=== PATIENT | female | born 1940 | race Caucasian/White ===

== ENCOUNTER 2019-05-28 11:37 | Inpatient (IN) | payer MEDICARE ==
[~2019-05-28] VITALS: Ht 154.9 cm; Wt 61.4 kg
[2019-05-28 12:30] LABS: BASOPHILS % (AUTO) 0.2 % (0-1); EOSINOPHILS % (AUTO) 0.1 % (0-6); HEMATOCRIT 35.7 % (35.0-45.0); HEMOGLOBIN 12.1 g/dl (12.0-16.0); LYMPHOCYTES # (AUTO) 1.6 X10'3 (1.1-4.8); LYMPHOCYTES % (AUTO) 15.2 % (21-51); MEAN CORPUSCULAR HGB CONC 33.8 g/dL (33.0-36.5); MEAN CORPUSCULAR VOLUME 91.6 FL (78-98); MEAN PLATELET VOLUME 7.2 FL (7.4-10.4); MONOCYTES # (AUTO) 0.7 X10'3 (0-0.9); MONOCYTES % (AUTO) 6.9 % (2-12); NEUTROPHILS # (AUTO) 8.2 X10'3 (1.8-7.7); NEUTROPHILS % (AUTO) 77.6 % (42-75); PLATELET COUNT 281 X10'3 (140-440); RED CELL DISTRIBUTION WIDTH 12.7 % (11.5-14.5); WHITE BLOOD COUNT 10.6 X10'3 (4.5-11.0)
[2019-05-28 12:46] LABS: ALANINE AMINOTRANSFERASE 28 U/L (12-78); ALBUMIN 3.4 G/DL (3.4-5.0); ALBUMIN/GLOBULIN RATIO 1.2 (1.1-1.5); ALKALINE PHOSPHATASE 55 IU/L (46-116); ANION GAP 11 (8-16); ASPARTATE AMINO TRANSFERASE 19 U/L (10-37); BILIRUBIN,TOTAL 0.5 MG/DL (0.1-1.0); BLOOD UREA NITROGEN 29 MG/DL (7-18); BUN/CREATININE RATIO 27.1 (6.6-38.0); CALCIUM 8.2 MG/DL (8.5-10.1); CHLORIDE 106 MMOL/L (99-107); CREATININE 1.07 MG/DL (0.40-0.90); GLUCOSE 107 MG/DL (70-104); POTASSIUM 3.5 MMOL/L (3.5-5.1); SODIUM 143 MMOL/L (135-145); TOTAL CARBON DIOXIDE 25.9 MMOL/L (24-32); TOTAL PROTEIN 6.2 G/DL (6.4-8.2); eGFR 49 ML/MIN
[2019-05-28] MEDS ORDERED: ACET-812 PO (14:32)
[2019-05-28] MEDS ORDERED: CHOL400T14 PO (14:32)
[2019-05-28] MEDS ORDERED: ERGO500054 PO (14:32)
[2019-05-28] MEDS ORDERED: DENO60DI SQ (14:32)
[2019-05-28] MEDS ORDERED: LISI10TA4 PO (14:32)
[2019-05-28] MEDS ORDERED: CALC0.2535 PO (14:32)
[2019-05-28] MEDS ORDERED: CALC-854 PO (14:32)
[2019-05-28] MEDS ORDERED: ESOM20CA PO (14:32)
[2019-05-28] MEDS ORDERED: HYDR12.55 PO (14:32)
[2019-05-28] MEDS ORDERED: ASPI-778 PO (14:32)
[2019-05-28] MEDS ORDERED: mag hydrox/Alum hydrox/simeth 30ml oral suspension PO PRN (14:35)
[2019-05-28] MEDS ORDERED: diphenhydrAMINE 50 mg/ml inj IV PRN (14:35)
[2019-05-28] MEDS ORDERED: bisacodyl 10mg suppository rectal RC PRN (14:35)
[2019-05-28] MEDS ORDERED: HYDROcodone/acetaminophen 5mg/325mg tablet PO PRN (14:35)
[2019-05-28] MEDS ORDERED: potassium Cl 20 mEq SR tablet PO PRN ×2 (14:35)
[2019-05-28] MEDS ORDERED: nitroGLYCERIN 0.4mg SUBLingual tab SL PRN (14:35)
[2019-05-28] MEDS ORDERED: potassium CL 10mEq/100ml bag 100 ML IV PRN ×2 (14:35)
[2019-05-28] MEDS ORDERED: magnesium hydroxide 30ml (MOM) UD suspension PO PRN (14:35)
[2019-05-28] MEDS ORDERED: metoprolol tartrate 1mg/ml inj IV PRN (14:35)
[2019-05-28] MEDS ORDERED: aminophylline 250mg/10ml inj. IV PRN (14:35)
[2019-05-28] MEDS ORDERED: acetaminophen 650mg rectal suppository RC PRN (14:35)
[2019-05-28] MEDS ORDERED: diphenhydrAMINE 25mg capsule PO PRN (14:35)
[2019-05-28] MEDS ORDERED: acetaminophen 325mg tablet PO PRN (14:35)
[2019-05-28] MEDS ORDERED: regadenoson 0.4mg/5ml syringe IV PRN (14:35)
[2019-05-28] MEDS ORDERED: ondansetron/PF 4mg/2ml inj IV PRN (14:35)
[2019-05-28] MEDS ORDERED: aspirin 325mg tablet PO ONE (14:35)
[2019-05-28 14:49] LABS: PARTIAL THROMBOPLASTIN TIME 56 SECONDS (22-32)
[2019-05-28 15:25] LABS: HEMOGLOBIN A1C 5.9 % (4.5-6.2)
[2019-05-28] MEDS ORDERED: heparin 10,000 units/1 ML INJ IV ONE (15:25)
[2019-05-28 15:26] LABS: MAGNESIUM 1.7 MG/DL (1.5-2.4); PHOSPHORUS 3.7 MG/DL (2.3-4.5)
[2019-05-28 15:45] VITALS: BP 157/76
[2019-05-28] MEDS: normal saline 1000ml 1,000 ML IV SCH (16:25)
[2019-05-28] MEDS: heparin 25,000 UNIT/250ml bag 250 ML IV SCH ×2 (16:32→23:40)
[2019-05-28] MEDS: acetaminophen 325mg tablet PO PRN (17:12)
[2019-05-28 18:00] VITALS: BP 172/80
--- NOTE | 2019-05-28 18:00 | NUR ---
Patient in room PCU 3015. I have received report from Floyd ORTIZ and had the opportunity to ask questions and assume patient care.
--- NOTE | 2019-05-28 18:00 | NUR ---
Patient in room PCU 3015. I have received report from Patricia ORTIZ and had the opportunity to ask questions and assume patient care.
--- NOTE | 2019-05-28 18:18 | NUR ---
Patient is admitted to room PCU 3015 @5442. I have received report from Sonya ORTIZ and had the opportunity to ask questions and assume patient care. VSS 157/76 (95) 80 17 99% on RA pain 0/10, Tele monitor 40 is placed, pt is tucked into bed all needs met at this time, will continue to monitor
--- NOTE | 2019-05-28 18:54 | NUR ---
Problems reprioritized. Patient report given, questions answered & plan of care reviewed with Aylin ORTIZ.
[2019-05-28] MEDS ORDERED: LORazepam 1 MG tablet PO ONE (19:40)
[2019-05-28] MEDS ORDERED: temazepam 15mg capsule PO PRN (21:00)
[2019-05-28 22:00] VITALS: BP 96/56
[2019-05-28] MEDS: heparin 10,000 units/1 ML INJ IV PRN (23:38)
[2019-05-29] VITALS (15 sets, daily range): BP systolic 117–150; BP diastolic 54–74
[2019-05-29] MEDS: normal saline 1000ml 1,000 ML IV SCH ×3 (00:34→20:34)
--- NOTE | 2019-05-29 05:36 | NUR ---
Patient slept well all night. Able to ambulate to the bathroom with stand-by assistance and a front wheel walker. Patient was given Ativan for MRI but was not able to go to MRI, bumped off the list due to a stroke alert in the hospital, and is on the list for MRI today in AM at 0800. Ativan is available for the patient's claustrophobia. Next cardiac PTT is at 0540. Possible Sabrina scan today. NPO this morning per MD Christian. Will continue to monitor.
[2019-05-29 05:41] LABS: BASOPHILS % (AUTO) 0.6 % (0-1); EOSINOPHILS # (AUTO) 0.1 X10'3 (0-0.9); EOSINOPHILS % (AUTO) 1.9 % (0-6); HEMATOCRIT 32.9 % (35.0-45.0); HEMOGLOBIN 11.2 g/dl (12.0-16.0); LYMPHOCYTES # (AUTO) 1.6 X10'3 (1.1-4.8); LYMPHOCYTES % (AUTO) 29.6 % (21-51); MEAN CORPUSCULAR HEMOGLOBIN 30.8 PG (27.0-31.0); MEAN CORPUSCULAR HGB CONC 34.1 g/dL (33.0-36.5); MEAN CORPUSCULAR VOLUME 90.2 FL (78-98); MEAN PLATELET VOLUME 7.8 FL (7.4-10.4); MONOCYTES # (AUTO) 0.6 X10'3 (0-0.9); MONOCYTES % (AUTO) 10.4 % (2-12); NEUTROPHILS # (AUTO) 3.1 X10'3 (1.8-7.7); NEUTROPHILS % (AUTO) 57.5 % (42-75); PLATELET COUNT 242 X10'3 (140-440); RED BLOOD COUNT 3.64 X10'6 (4.20-5.60); RED CELL DISTRIBUTION WIDTH 12.5 % (11.5-14.5); WHITE BLOOD COUNT 5.4 X10'3 (4.5-11.0)
[2019-05-29 05:49] LABS: ALANINE AMINOTRANSFERASE 22 U/L (12-78); ALBUMIN 2.9 G/DL (3.4-5.0); ALBUMIN/GLOBULIN RATIO 1.1 (1.1-1.5); ALKALINE PHOSPHATASE 46 IU/L (46-116); ANION GAP 9 (8-16); ASPARTATE AMINO TRANSFERASE 15 U/L (10-37); BILIRUBIN,TOTAL 0.5 MG/DL (0.1-1.0); BLOOD UREA NITROGEN 26 MG/DL (7-18); BUN/CREATININE RATIO 27.7 (6.6-38.0); CALCIUM 7.6 MG/DL (8.5-10.1); CHLORIDE 111 MMOL/L (99-107); CHOL/HDL RATIO 2.8 (0.00-4.99); CHOLESTEROL 177 MG/DL (0-200); CREATININE 0.94 MG/DL (0.40-0.90); GLUCOSE 103 MG/DL (70-104); HDL CHOLESTEROL 64 MG/DL (35-60); LDL CHOLESTEROL 100 MG/DL (50-100); PHOSPHORUS 2.9 MG/DL (2.3-4.5); POTASSIUM 3.6 MMOL/L (3.5-5.1); SODIUM 144 MMOL/L (135-145); TOTAL CARBON DIOXIDE 23.9 MMOL/L (24-32); TOTAL PROTEIN 5.5 G/DL (6.4-8.2); TRIGLYCERIDES 98 MG/DL (20-135); eGFR 57 ML/MIN
--- NOTE | 2019-05-29 05:59 | NUR ---
Medication Reconciliation Needs to be done. Unable on my shift, patient stated she already done it with ER and was too drowsy from Ativan to answer further more questions.
--- NOTE | 2019-05-29 06:32 | NUR ---
Problems reprioritized. Patient report given, questions answered & plan of care reviewed with Patricia ORTIZ.
[2019-05-29] MEDS ORDERED: LORazepam 1 MG tablet PO ONE (07:00)
--- NOTE | 2019-05-29 07:11 | NUR ---
PAGER ID: [phone] MESSAGE: [phone] Julia Tadeo: RYLEE Cardiac PTT this morning critical at 96, will hold heparin GTTS and will restart per protocol. Thanks Floyd
[2019-05-29] MEDS ORDERED: enoxaparin 40mg/0.4ml syringe SUBCUT SCH (08:00)
[2019-05-29] MEDS: K and/or MAG REPLACEMENT MC SCH (08:00)
[2019-05-29] MEDS: lisinopril 10 MG tablet PO SCH (08:00)
[2019-05-29] MEDS: aspirin 325mg tablet PO SCH (08:25)
[2019-05-29] MEDS: heparin 25,000 UNIT/250ml bag 250 ML IV SCH ×2 (12:13→15:21)
--- NOTE | 2019-05-29 12:52 | NUR ---
PAGER ID: [phone] MESSAGE: [id number] Julia Tadeo: Stress test results in, Small reversible anteroapical perfusion defect, Ejection fraction equals 74%. Thanks Floyd
--- NOTE | 2019-05-29 14:08 | NUR ---
PAGER ID: [phone] MESSAGE: [id number] Julia Tadeo: Stress test results in, Small reversible anteroapical perfusion defect, Ejection fraction equals 74%, Pt is getting impatient and wants to know the plan and if she can eat. Thanks Floyd
[2019-05-29] MEDS: heparin 10,000 units/1 ML INJ IV PRN (15:20)
--- NOTE | 2019-05-29 16:30 | NUR ---
Received orders from Dr. Christian to d/c heparin gtts and start lovenox 1mg/kg q12h
--- NOTE | 2019-05-29 18:00 | NUR ---
Patient in room PCU 3015. I have received report from Floyd ORTIZ and had the opportunity to ask questions and assume patient care.
--- NOTE | 2019-05-29 18:44 | NUR ---
Problems reprioritized. Patient report given, questions answered & plan of care reviewed with Aylin ORTIZ.
[2019-05-29] MEDS: enoxaparin 60mg/0.6ml syringe SUBCUT SCH (19:26)
[2019-05-29] MEDS ORDERED: simethicone 125mg capsule PO ONE (22:45)
[2019-05-29] MEDS ORDERED: pantoprazole 40mg Tablet.DR PO ONE (23:00)
[2019-05-30 02:00] VITALS: BP 126/91
--- NOTE | 2019-05-30 04:28 | NUR ---
END NOC NOTE Patient slept well this shift. Able to ambulate to the bathroom with front wheel walker and assistance. At 0400 patient's HR dropped to the 50s, I assessed the patient and She was not symptomatic and stated that she has a history of bradycardia due to her cardiac history and sleep apnea. Will continue to monitor.
[2019-05-30 06:00] VITALS: BP 155/70
--- NOTE | 2019-05-30 06:25 | NUR ---
Patient in room PCU 3015. I have received report from DIANA Viera and had the opportunity to ask questions and assume patient care.
--- NOTE | 2019-05-30 06:41 | NUR ---
Problems reprioritized. Patient report given, questions answered & plan of care reviewed with Elisabeth ORTIZ.
[2019-05-30] MEDS ORDERED: pantoprazole 40mg Tablet.DR PO SCH (07:30)
[2019-05-30] MEDS: K and/or MAG REPLACEMENT MC SCH (08:00)
[2019-05-30] MEDS: lisinopril 10 MG tablet PO SCH (08:49)
[2019-05-30] MEDS: aspirin 325mg tablet PO SCH (08:50)
[2019-05-30] MEDS: enoxaparin 60mg/0.6ml syringe SUBCUT SCH ×2 (08:50→19:21)
[2019-05-30 11:00] VITALS: BP 124/56
[2019-05-30] MEDS: acetaminophen 325mg tablet PO PRN ×2 (11:30→21:33)
[2019-05-30] MEDS: normal saline 1000ml 1,000 ML IV SCH ×3 (11:34→22:33)
[2019-05-30 15:00] VITALS: BP 127/58
[2019-05-30 18:00] VITALS: BP 149/56
--- NOTE | 2019-05-30 18:27 | NUR ---
Problems reprioritized. Patient report given, questions answered & plan of care reviewed with DIANA Viera .
[2019-05-30] MEDS ORDERED: docusate sod 100mg capsule PO ONE (20:00)
[2019-05-30 23:00] VITALS: BP 144/68
[2019-05-31] VITALS (12 sets, daily range): BP systolic 132–174; BP diastolic 56–79
--- NOTE | 2019-05-31 04:07 | NUR ---
END NOC NOTE Patient slept well tonight. A bit anxious about the angio procedure in AM, educational material was given and patient stated "I feel so much better about this the more i read it." Will continue to monitor.
--- NOTE | 2019-05-31 05:41 | NUR ---
Patient in room PCU 3015. I have received report from Aylin ORTIZ and had the opportunity to ask questions and assume patient care.
--- NOTE | 2019-05-31 06:53 | NUR ---
Patient in room PCU 3019B. I have received report from Aylin ORTIZ and had the opportunity to ask questions and assume patient care.
--- NOTE | 2019-05-31 06:59 | NUR ---
Problems reprioritized. Patient report given, questions answered & plan of care reviewed with Yina ORTIZ.
[2019-05-31 07:15] LABS: BASOPHILS % (AUTO) 0.4 % (0-1); EOSINOPHILS # (AUTO) 0.1 X10'3 (0-0.9); HEMATOCRIT 35.7 % (35.0-45.0); HEMOGLOBIN 12.1 g/dl (12.0-16.0); LYMPHOCYTES % (AUTO) 16.5 % (21-51); MEAN CORPUSCULAR HEMOGLOBIN 30.6 PG (27.0-31.0); MEAN CORPUSCULAR HGB CONC 33.7 g/dL (33.0-36.5); MEAN CORPUSCULAR VOLUME 90.7 FL (78-98); MEAN PLATELET VOLUME 7.5 FL (7.4-10.4); MONOCYTES # (AUTO) 0.6 X10'3 (0-0.9); MONOCYTES % (AUTO) 9.1 % (2-12); NEUTROPHILS # (AUTO) 4.6 X10'3 (1.8-7.7); PLATELET COUNT 236 X10'3 (140-440); RED BLOOD COUNT 3.94 X10'6 (4.20-5.60); RED CELL DISTRIBUTION WIDTH 12.6 % (11.5-14.5); WHITE BLOOD COUNT 6.4 X10'3 (4.5-11.0)
[2019-05-31] MEDS: aspirin 325mg tablet PO SCH (07:54)
[2019-05-31] MEDS: K and/or MAG REPLACEMENT MC SCH (08:00)
[2019-05-31] MEDS: lisinopril 10 MG tablet PO SCH (08:02)
[2019-05-31 08:54] LABS: ALANINE AMINOTRANSFERASE 34 U/L (12-78); ALBUMIN/GLOBULIN RATIO 0.9 (1.1-1.5); ALKALINE PHOSPHATASE 53 IU/L (46-116); ANION GAP 11 (8-16); ASPARTATE AMINO TRANSFERASE 29 U/L (10-37); BILIRUBIN,TOTAL 0.4 MG/DL (0.1-1.0); BLOOD UREA NITROGEN 17 MG/DL (7-18); BUN/CREATININE RATIO 19.1 (6.6-38.0); CALCIUM 7.7 MG/DL (8.5-10.1); CHLORIDE 114 MMOL/L (99-107); CREATININE 0.89 MG/DL (0.40-0.90); GLUCOSE 94 MG/DL (70-104); PHOSPHORUS 1.7 MG/DL (2.3-4.5); POTASSIUM 3.4 MMOL/L (3.5-5.1); SODIUM 147 MMOL/L (135-145); TOTAL CARBON DIOXIDE 22.4 MMOL/L (24-32); TOTAL PROTEIN 6.3 G/DL (6.4-8.2); eGFR 61 ML/MIN
[2019-05-31] MEDS: potassium CL 20mEq in D5-1/2NS 1,000 ML IV SCH ×2 (09:42→21:45)
[2019-05-31] MEDS ORDERED: LIDOcaine 1% (10mg/ml)w/preservative injection 20ml MDV ONE (09:54)
[2019-05-31] MEDS ORDERED: iohexol 350MG/ML 100ml bottle IV ONE (09:55)
[2019-05-31] MEDS ORDERED: iohexol 350 MG/ML 50ML vial IV ONE (09:55)
[2019-05-31] MEDS ORDERED: potassium CL 10mEq/100ml bag 100 ML IV PRN (10:00)
[2019-05-31] MEDS ORDERED: magnesium Cl slow-release 64mg tablet PO PRN (10:00)
[2019-05-31] MEDS ORDERED: potassium Cl 20 mEq SR tablet PO PRN ×2 (10:00)
[2019-05-31] MEDS ORDERED: magnesium 4gm in 100ml NS 100 ML IV PRN (10:00)
--- NOTE | 2019-05-31 10:26 | NUR ---
Patient taken to [facility]
[2019-05-31] MEDS ORDERED: midazolam 2 mg/2 ml injection ONE (10:31)
[2019-05-31] MEDS ORDERED: fentaNYL/PF 50MCG/1 ML 2ML syringe ONE (10:31)
--- NOTE | 2019-05-31 11:10 | NUR ---
Received report from Rope [employer]er. Patient has no CAD, sheath was removed, and patient angio-sealed on right groin. Received in report that patient got 2 of Versed and 100 of Fentanyl.
--- NOTE | 2019-05-31 11:15 | NUR ---
patient returned from laborer tin can. NS connected at 100/hr per MD order, right groin site assessed, and pedal pulses verified. VSS stable and initiated post op vital protocol. Orders faxed to pharmacy. Will continue to monitor closely Addendum: 05/31/19 at 1150 by Yina Restrepo RN Pt educated that she needs to lay flat and still for 6 hours
[2019-05-31] MEDS ORDERED: OXAZEpam 15mg capsule PO PRN (11:45)
[2019-05-31] MEDS ORDERED: HYDROcodone/acetaminophen 10/325mg tab PO PRN (11:45)
[2019-05-31] MEDS ORDERED: proCHLORperazine 10 MG/2 ml inj IV PRN (11:45)
[2019-05-31] MEDS ORDERED: POTASSIUM BICARB 20meq eff tab 20 MEQ TABLET.EFF PO PRN ×2 (12:27→12:28)
--- NOTE | 2019-05-31 14:23 | NUR ---
Paged Dr Christian PAGER ID: [phone] MESSAGE: Yina us [phone]. RE Kendra Tadeo One of pts IVs pulled out upon return from petroleum refinery laborer. 4 attempts for IV, no success. Only have 1 IV access. Will continue to run NS for 10 hrs per cath order, and will restart ordered 20 mEq K in D5W 1/2 NS after
--- NOTE | 2019-05-31 15:15 | NUR ---
Pedal pulses continuing to be found via palpation and doppler. No hematoma on right groin site. No pain present in retroperitoneal. Will continue to monitor closely
--- NOTE | 2019-05-31 15:23 | NUR ---
22 IV placed in right forearm. Patient tolerated well. Both ordered fluids currently running via separate IVs
--- NOTE | 2019-05-31 18:00 | NUR ---
Patient in room PCU 3015. I have received report from Yina ORTIZ and had the opportunity to ask questions and assume patient care.
--- NOTE | 2019-05-31 18:12 | NUR ---
Problems reprioritized. Patient report given, questions answered & plan of care reviewed with Aylin ORTIZ.
[2019-05-31] MEDS ORDERED: docusate sod 100mg capsule PO ONE (20:05)
[2019-06-01 02:00] VITALS: BP 138/63
--- NOTE | 2019-06-01 04:11 | NUR ---
Fever Patient had a temperature of 101 deg. F at 0000, tylenol was given and continued to monitor. 0100, temperature 100 deg F; 0200, temperatue 99 deg F; 0400, temperature 98.8 deg F.
--- NOTE | 2019-06-01 05:28 | NUR ---
END NOC NOTE: Patient is nervous about going home today with having a fever tonight but knows the fever has broke. Will continue to monitor.
[2019-06-01 06:00] VITALS: BP 131/67
[2019-06-01 06:11] LABS: BASOPHILS % (AUTO) 0.3 % (0-1); EOSINOPHILS % (AUTO) 0.5 % (0-6); HEMATOCRIT 29.8 % (35.0-45.0); HEMOGLOBIN 10.3 g/dl (12.0-16.0); LYMPHOCYTES # (AUTO) 1.2 X10'3 (1.1-4.8); LYMPHOCYTES % (AUTO) 15.3 % (21-51); MEAN CORPUSCULAR HEMOGLOBIN 31.4 PG (27.0-31.0); MEAN CORPUSCULAR HGB CONC 34.4 g/dL (33.0-36.5); MEAN CORPUSCULAR VOLUME 91.2 FL (78-98); MEAN PLATELET VOLUME 7.9 FL (7.4-10.4); MONOCYTES # (AUTO) 0.8 X10'3 (0-0.9); MONOCYTES % (AUTO) 10.5 % (2-12); NEUTROPHILS # (AUTO) 5.8 X10'3 (1.8-7.7); NEUTROPHILS % (AUTO) 73.4 % (42-75); PLATELET COUNT 217 X10'3 (140-440); RED BLOOD COUNT 3.27 X10'6 (4.20-5.60); RED CELL DISTRIBUTION WIDTH 12.5 % (11.5-14.5); WHITE BLOOD COUNT 7.9 X10'3 (4.5-11.0)
--- NOTE | 2019-06-01 06:25 | NUR ---
Patient in room PCU 3019C. I have received report from Aylin ORTIZ and had the opportunity to ask questions and assume patient care.
[2019-06-01 06:49] LABS: ALANINE AMINOTRANSFERASE 39 U/L (12-78); ALBUMIN 2.5 G/DL (3.4-5.0); ALBUMIN/GLOBULIN RATIO 0.9 (1.1-1.5); ALKALINE PHOSPHATASE 52 IU/L (46-116); ANION GAP 12 (8-16); ASPARTATE AMINO TRANSFERASE 27 U/L (10-37); BILIRUBIN,TOTAL 0.5 MG/DL (0.1-1.0); BLOOD UREA NITROGEN 12 MG/DL (7-18); BUN/CREATININE RATIO 12.9 (6.6-38.0); CALCIUM 6.7 MG/DL (8.5-10.1); CHLORIDE 110 MMOL/L (99-107); CREATININE 0.93 MG/DL (0.40-0.90); GLUCOSE 112 MG/DL (70-104); PHOSPHORUS 1.6 MG/DL (2.3-4.5); POTASSIUM 3.4 MMOL/L (3.5-5.1); SODIUM 143 MMOL/L (135-145); TOTAL CARBON DIOXIDE 21.1 MMOL/L (24-32); TOTAL PROTEIN 5.4 G/DL (6.4-8.2); eGFR 58 ML/MIN
--- NOTE | 2019-06-01 06:50 | NUR ---
Problems reprioritized. Patient report given, questions answered & plan of care reviewed with Yina ORTIZ.
[2019-06-01 07:00] VITALS: BP 131/67
--- NOTE | 2019-06-01 07:28 | NUR ---
Paged Dr Christian PAGER ID: [phone] MESSAGE: Yina su [phone]. RE Kendra Tadeo Pt concerned about possible UTI. [place] vaginal burning during NOC, not currently feeling now. Temp ranges from 98.6-100.2 WBC 7.9 today, up from 6.4 yesterday. Pt would like to speak to you about it. Thank you!
[2019-06-01] MEDS: K and/or MAG REPLACEMENT MC SCH (07:36)
[2019-06-01] MEDS: aspirin 325mg tablet PO SCH (07:41)
[2019-06-01] MEDS: lisinopril 10 MG tablet PO SCH (07:41)
[2019-06-01 08:57] LABS: CLARITY,URINE CLEAR (Clear); COLOR,URINE YELLOW (Yellow); GLUCOSE, URINE NEGATIVE (Neg); KETONES,URINE NEGATIVE (Neg); LEUKOCYTE ESTERASE ,URINE NEGATIVE (Neg); NITRITES, URINE NEGATIVE (Neg); OCCULT BLOOD,URINE NEGATIVE (Neg); PROTEIN,URINE NEGATIVE (Neg); UROBILINOGEN,URINE 0.2 E.U/dL (0.2-1.0)
[2019-06-01 09:00] LABS: UA COLLECTION TYPE CLN CATCH MIDSTREAM
[2019-06-01 11:00] VITALS: BP 111/57
[2019-06-01] MEDS ORDERED: ASPI81TA52 PO (11:49)
[2019-06-01] MEDS ORDERED: NEUPHOSK PO (11:55)
[2019-06-01] MEDS ORDERED: CEPH500C5 PO (12:11)
--- NOTE | 2019-06-01 14:25 | NUR ---
Per MD, patient stable for discharge. Discharge packet completed and patient educated. New prescriptions called into [facility] on [address] in [place]. Patients wallet brought up from hospital safe. IV discontinued with catheter intact and tele monitor removed. Patient escorted via wheelchair to private vehicle, accompanied by staff and friend.
== END 2019-06-01 13:25 | disposition home or self-care (01) | DRG 280 ==
LOC: ER 11:38 → ED HOLD 14:59 → PCU 3S 17:40
PROVIDERS: ADMIT Family Medicine; ATTEND Family Medicine
PROC: 4A02XM4 Measurement of Cardiac Total Activity, External Approach (ICD-10-PCS; 2019-05-29)
PROC: 3E033HZ Introduction of Radioactive Substance into Peripheral Vein, Percutaneous Approach (ICD-10-PCS; 2019-05-29)
PROC: 4A10X4Z Monitoring of Central Nervous Electrical Activity, External Approach (ICD-10-PCS; 2019-05-30)
PROC: 4A023N7 Measurement of Cardiac Sampling and Pressure, Left Heart, Percutaneous Approach (ICD-10-PCS; principal; 2019-05-31)
PROC: B2111ZZ Fluoroscopy of Multiple Coronary Arteries using Low Osmolar Contrast (ICD-10-PCS; 2019-05-31)
PROC: B2151ZZ Fluoroscopy of Left Heart using Low Osmolar Contrast (ICD-10-PCS; 2019-05-31)
DX: I21.4 Non-ST elevation (NSTEMI) myocardial infarction (principal); G93.41 Metabolic encephalopathy; E87.1 Hypo-osmolality and hyponatremia; E03.9 Hypothyroidism, unspecified; E83.39 Other disorders of phosphorus metabolism; G47.33 Obstructive sleep apnea (adult) (pediatric); K21.9 Gastro-esophageal reflux disease without esophagitis; I34.0 Nonrheumatic mitral (valve) insufficiency; M81.0 Age-related osteoporosis without current pathological fracture; Z96.651 Presence of right artificial knee joint; G43.909 Migraine, unspecified, not intractable, without status migrainosus; K44.9 Diaphragmatic hernia without obstruction or gangrene; I20.9 Angina pectoris, unspecified; I65.21 Occlusion and stenosis of right carotid artery; I12.9 Hypertensive chronic kidney disease with stage 1 through stage 4 chronic kidney disease, or unspecified chronic kidney disease; N18.3 Chronic kidney disease, stage 3 (moderate); Z88.8 Allergy status to other drugs, medicaments and biological substances; Z88.1 Allergy status to other antibiotic agents; Z98.41 Cataract extraction status, right eye; Z79.899 Other long term (current) drug therapy; Z79.890 Hormone replacement therapy; Z85.3 Personal history of malignant neoplasm of breast; Z85.828 Personal history of other malignant neoplasm of skin; Z86.011 Personal history of benign neoplasm of the brain; Z92.3 Personal history of irradiation; Z92.21 Personal history of antineoplastic chemotherapy
CPT/HCPCS: 36415; 70544; 70551; 71045; 78452; 80053; 80061; 81003; 83036; 83735; 83880; 84100; 84443; 84484; 85025; 85610; 85730; 87081; 93005; 93017; 93306; 93458; 93880; 95816; 97110; 97112; 97116; 97530; 99152; 99285; A4620; A6258; A9500; C1760; C1769; G0378; J0280; J1644; J1650; J2001; J2250; J2785; J3010; J3480; J7030; Q9967